=== PATIENT | male | born 2000 | race Caucasian/White ===

== ENCOUNTER 2021-04-09 10:47 | Emergency (ER) | payer OTHER ==
[~2021-04-09] VITALS: Ht 175.3 cm; Wt 58.1 kg
[~2021-04-09 10:47] MED LIST: TRAM50 PO; Zofran Odt4 MG SL
[2021-04-09] MEDS ORDERED: TRANSDERM-SCOP1 EAC7 TD (12:50)
[2021-04-09] MEDS ORDERED: ONDA4ODT MM (12:50)
== END 2021-04-09 13:00 | disposition home or self-care (01) ==
LOC: ER 10:47
DX: R42 Dizziness and giddiness (principal); R11.10 Vomiting, unspecified; R53.83 Other fatigue; Z91.02 Food additives allergy status
CPT/HCPCS: 99282; A9270